=== PATIENT | female | born 2000 | race Caucasian/White ===

== ENCOUNTER 2019-09-24 22:47 | Emergency (ER) | payer SELFPAY ==
--- NOTE | 2019-09-25 01:07 | ED ---
Skin Complaint - HPI Summary HPI Summary: 18 yo female presents with ?incision infection. She tells me that on 09/12 she had a b/l breast reduction on [place]. Today noticed some scant drainage from the incision under her left breast. 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 Denies fever, chills, or pain. She is scheduled to see her surgeon the end of September - has not called them about this issue. - History of Current Complaint Chief Complaint: EDRashSkinAbscess Time Seen by Provider: 09/25/19 01:07 Stated Complaint: POSSIBLE INFECTION PER PT Hx Obtained From: Patient Onset Severity: Mild Current Severity: Mild Pain Intensity: 3 Pain Scale Used: 0-10 Numeric - Allergy/Home Medications Allergies/Adverse Reactions: Allergies Allergy/AdvReac Type Severity Reaction Status Date / Time No Known Allergies Allergy Verified 09/24/19 22:51 PMH/Surg Hx/FS Hx/Imm Hx Endocrine/Hematology History: Denies: Hx Diabetes, Hx Anemia Cardiovascular History: Denies: Hx Hypotension, Hx Hypertension Respiratory History: Denies: Hx Asthma, Hx Chronic Obstructive Pulmonary Disease (COPD) Neurological History: Denies: Hx CVA, Hx Headaches - Surgical History Surgical History: Yes Surgery Procedure, Year, and Place: b/l breast reduction - Immunization History Immunizations Up to Date: Yes Infectious Disease History: Reports: Hx of Known/Suspected MRSA Denies: Traveled Outside the [place] in Last 30 Days - Family History Known Family History: Positive: Non-Contributory - Social History Occupation: Student Lives: Dormitory/Roommates Alcohol Use: Occasionally Substance Use Type: Reports: None Smoking Status (MU): Never Smoked Tobacco Review of Systems Constitutional: Negative Cardiovascular: Negative Respiratory: Negative Gastrointestinal: Negative Skin: Other - Left breast incision drainage Neurological: Negative Psychological: Normal All Other Systems Reviewed And Are Negative: No Physical Exam - Summary Physical Exam Summary: GENERAL: NAD. WDWN. No pain distress. SKIN: LEFT BREAST: Healing incision at vertical inferior breast and areola. Healing incision underneath left breast. At the junction of the vertical and horizontal incision there is scant yellow/brown discharge. No tenderness, abscess, streaking, erythema, or wound dehiscence. No copious purulent material was able to be expressed with palpating breast. NECK: Supple. Nontender. No lymphadenopathy. CHEST: No accessory muscle use. Breathing comfortably and in no distress. CV: Pulses intact. Cap refill <2seconds NEURO: Alert. PSYCH: Age appropriate behavior. Exam assisted by [facility] Triage Information Reviewed: Yes Vital Signs On Initial Exam: Initial Vitals Temp Pulse Resp BP Pulse Ox 98.3 F 68 15 121/82 100 09/24/19 22:49 09/24/19 22:49 09/24/19 22:49 09/24/19 22:49 09/24/19 22:49 Vital Signs Reviewed: Yes Procedures - Sedation Patient Received Moderate/Deep Sedation with Procedure: No Diagnostics - Vital Signs Vital Signs Temp Pulse Resp BP Pulse Ox 09/24/19 22:49 98.3 F 68 15 121/82 100 - Laboratory Lab Statement: Any lab studies that have been ordered have been reviewed, and results considered in the medical decision making process. Course/Dx - Course Course Of Treatment: Suspect wound infection - a culture was obtained and will be sent. Given her hx of MRSA, will treat with bactroban. Discussed starting po anbx at this time, but she prefers to call her surgeon in the morning and discuss this with him. - Diagnoses Provider Diagnoses: Superficial incisional infection of surgical site Discharge ED - Sign-Out/Discharge Documenting (check all that apply): Patient Departure - Discharge Plan Condition: Stable Disposition: HOME Prescriptions: Mupirocin 2% OINT* [Bactroban 2 % Oint*] 1 applic TOPICAL BID #1 tube Patient Education Materials: MRSA (Methicillin-Resistant Staphylococcus Aureus ) (ED), Wound Infection (ED), Acute Wound Care (ED) Referrals: No Primary Care Phys,NOPCP [Primary Care Provider] - Additional Instructions: If you develop a fever, shortness of breath, chest pain, new or worsening symptoms - please call your PCP or go to the ED immediately. Please apply a band-aid daily with the bactroban as directed Please call your surgeon in the morning and let him know of your visit today - Billing Disposition and Condition Condition: STABLE Disposition: Home
[2019-09-25 01:47] VITALS: BP 112/64
== END 2019-09-25 01:46 | disposition home or self-care (01) ==
LOC: ED 22:47
DX: T81.40XA Infection following a procedure, unspecified, initial encounter (principal); Z86.14 Personal history of Methicillin resistant Staphylococcus aureus infection; Z98.890 Other specified postprocedural states
CPT/HCPCS: 87070; 87077; 87205; 87640; 87641; 99282

== ENCOUNTER 2020-10-10 13:06 | Inpatient (IN) ==
[2020-10-10 14:59] LABS: ABS Eosinophils 0.1 10^3/ul (0-0.6); ABS Lymphocytes 1.4 10^3/ul (1.0-4.8); ABS Monocytes 0.3 10^3/ul (0-0.8); ABS Neutrophils 3.2 10^3/ul (1.5-7.7); Eosinophil % 1.5 %; Hematocrit 40 % (35-47); Hemoglobin 13.7 g/dL (12.0-16.0); Lymphocyte % 28.6 %; Mean Corpuscular HGB Conc 35 g/dL (31-36); Mean Corpuscular Hemoglobin 30 pg (27-31); Mean Corpuscular Volume 85 fL (80-97); Mean Platelet Volume 8.5 fL (7.4-10.4); Nucleated Red Blood Cells % 0.1; Platelet Count 202 10^3/uL (150-450); Red Blood Count 4.66 10^6 /uL (3.70-4.87); Red Cell Distribution Width 14 % (10-15)
[2020-10-10 15:27] LABS: ALT 9 U/L (7-52); AST 14 U/L (13-39); Albumin 4.8 g/dL (3.2-5.2); Albumin/Globulin Ratio 1.8 (1-3); Alkaline Phosphatase 81 U/L (34-104); Anion Gap 5 mmol/L (2-11); BUN/Creatinine Ratio 15.6 (8-20); Blood Urea Nitrogen 12 mg/dL (6-24); CO2 Carbon Dioxide 27 mmol/L (22-32); Calcium 9.9 mg/dL (8.6-10.3); Chloride 107 mmol/L (101-111); EGFR African American 114.5 (>60); EGFR Non-African American 94.6 (>60); Globulin 2.7 g/dL (2-4); Glucose 80 mg/dL (70-100); Potassium 4.3 mmol/L (3.5-5.0); Sodium 139 mmol/L (135-145); Total Protein 7.5 g/dL (6.4-8.9)
[2020-10-10 15:31] LABS: HCG Pregnancy < 0.60 mIU/mL
[2020-10-10 15:51] LABS: Acetaminophen < 15 mcg/mL; Alcohol, S < 10 mg/dL (<10); Salicylate < 2.50 mg/dL (<30)
[2020-10-10 16:03] LABS: TSH Ultra Thyroid Stim Horm 0.57 mcIU/mL (0.34-5.60)
[2020-10-10] MEDS ORDERED: Al Hydrox/Mg Hydrox/Simet LIQ 30 ML UDC PO PRN (21:05)
[2020-10-11] MEDS ORDERED: Vitamin THERAPEUTIC TAB PO SCH (09:00)
[2020-10-11 10:48] VITALS: BP 114/73
== END 2020-10-11 16:35 | disposition home or self-care (01) | DRG 754 ==
LOC: ED 13:06 → BSU 17:45
PROVIDERS: ADMIT Psychiatry & Neurology Psychiatry; ATTEND Psychiatry & Neurology Psychiatry